=== PATIENT | female | born 1980 | race African-American/Black ===

== ENCOUNTER 2017-11-15 15:20 | Emergency (ER) | payer SELFPAY ==
--- NOTE | 2017-11-15 15:54 | RAD ---
CHEST PA AND LATERAL: HISTORY: A 37-year-old female with a history of cough for 1 month. FINDINGS: Heart size is within normal limits. The lungs are clear. Stable appearance from 01/26/12. IMPRESSION: No acute intrathoracic disease. No evidence of pneumonia or other acute process. POS: OFF
== END 2017-11-15 16:00 | disposition home or self-care (01) ==
LOC: SCSER 15:20
DX: R05 Cough (principal); I10 Essential (primary) hypertension
CPT/HCPCS: 71046

== ENCOUNTER 2018-10-29 11:12 | Emergency (ER) | payer SELFPAY ==
[2018-10-29] MEDS ORDERED: Ibuprofen 800 MG TAB ONE (13:20)
[2018-10-29] MEDS ORDERED: Dexamethasone 4 mg/ml Vial ONE (13:20)
--- NOTE | 2018-10-29 13:30 | RAD ---
TWO VIEWS CHEST: Comparison: 11-25-17 History: Nonproductive cough for a week. FINDINGS: Two views of the chest show normal sized cardiomediastinal silhouette. There is no evidence of consol idation, mass, or pleural effusion. The bones are unremarkable. IMPRESSION: No evidence of acute cardiopulmonary disease. POS: [facility]
== END 2018-10-29 13:50 | disposition home or self-care (01) ==
LOC: ERS 11:12
DX: J20.9 Acute bronchitis, unspecified (principal); I10 Essential (primary) hypertension
CPT/HCPCS: 71046; J1100

== ENCOUNTER 2021-04-24 21:04 | Emergency (ER) | payer SELFPAY ==
[2021-04-24] MEDS ORDERED: Ketorolac Tromethamine 30 MG/ML VIAL ONE (23:05)
[2021-04-24] MEDS ORDERED: Clindamycin 150 MG CAP ONE (23:20)
== END 2021-04-24 23:25 | disposition home or self-care (01) ==
LOC: ERS 21:04
DX: L02.11 Cutaneous abscess of neck (principal); L03.221 Cellulitis of neck; L73.9 Follicular disorder, unspecified; I10 Essential (primary) hypertension; R59.0 Localized enlarged lymph nodes; J45.909 Unspecified asthma, uncomplicated
CPT/HCPCS: 96372; 99283; J1885

== ENCOUNTER 2023-06-05 05:56 | Emergency (ER) | payer SELFPAY ==
[2023-06-05] MEDS ORDERED: Ketorolac Tromethamine 30 MG/ML VIAL ONE (06:25)
[2023-06-05] MEDS ORDERED: Proparacaine 0.5% Opth 15 ML BOT ONE (06:28)
[2023-06-05] MEDS ORDERED: Fluorescein Opthalmic Strip ONE (07:06)
[2023-06-05] MEDS ORDERED: Timolol 0.5% Ophth Soln 5 ml Bottle R EYE SCH (07:45)
[2023-06-05] MEDS ORDERED: Pilocarpine 1% Ophth Drops 15 ML BOT R EYE SCH (08:00)
== END 2023-06-05 09:37 | disposition home or self-care (01) ==
LOC: ERS 05:56
DX: H57.11 Ocular pain, right eye (principal); K02.9 Dental caries, unspecified; I10 Essential (primary) hypertension; J45.909 Unspecified asthma, uncomplicated
CPT/HCPCS: 96372; 99283; J1885